=== PATIENT | male | born 1990 | race Caucasian/White ===

== ENCOUNTER 2016-07-10 13:50 | Emergency (ER) | payer MEDICAID ==
[2012-11-06 20:40] VITALS: BMI 25.4
== END 2016-07-10 17:02 | disposition home or self-care (01) ==
LOC: D.ER 13:50
DX: S05.01XA Injury of conjunctiva and corneal abrasion without foreign body, right eye, initial encounter (principal); X58.XXXA Exposure to other specified factors, initial encounter; Y93.89 Activity, other specified; Y92.89 Other specified places as the place of occurrence of the external cause; K21.9 Gastro-esophageal reflux disease without esophagitis; F17.200 Nicotine dependence, unspecified, uncomplicated

== ENCOUNTER 2016-11-26 15:43 | Emergency (ER) | payer MEDICAID ==
[2012-11-06 20:40] VITALS: BMI 25.4
== END 2016-11-26 19:07 | disposition home or self-care (01) ==
LOC: D.ER 15:43
DX: S05.02XA Injury of conjunctiva and corneal abrasion without foreign body, left eye, initial encounter (principal); X58.XXXA Exposure to other specified factors, initial encounter; Y93.89 Activity, other specified; Y92.89 Other specified places as the place of occurrence of the external cause; R68.84 Jaw pain; V89.2XXA Person injured in unspecified motor-vehicle accident, traffic, initial encounter

== ENCOUNTER 2017-11-25 23:33 | Emergency (ER) | payer MEDICAID ==
[~2017-11-25] VITALS: Ht 180.3 cm; Wt 83.6 kg
[2017-11-25 23:43] VITALS: Ht 180.3 cm; Wt 83.6 kg
[2017-11-25] MEDS ORDERED: AMITRIPTYLINE H50 MG PO (23:44)
[2017-11-25] MEDS ORDERED: NEURONTIN 300300 MG PO (23:44)
[2017-11-26] MEDS ORDERED: COLCRYS0.6 MG PO (00:12)
[2017-11-26] MEDS ORDERED: NEURONTIN 300300 MG PO (00:12)
[2017-11-26] MEDS ORDERED: AMITRIPTYLINE H50 MG PO (00:12)
[2017-11-26 00:18] VITALS: BP 136/94
[2017-11-27] MEDS ORDERED: TYLENOL #4 W/CO1 TAB PO (02:04)
[2017-11-27] MEDS ORDERED: PREDNISONE20 MG PO (02:04)
== END 2017-11-26 00:19 | disposition home or self-care (01) ==
LOC: D.ER 23:33
DX: I65.8 Occlusion and stenosis of other precerebral arteries (principal); F17.200 Nicotine dependence, unspecified, uncomplicated

== ENCOUNTER 2017-11-26 23:59 | Emergency (ER) | payer MEDICAID ==
[~2017-11-26] VITALS: Ht 180.3 cm; Wt 82.7 kg
[~2017-11-26 23:59] MED LIST: AMITRIPTYLINE H50 MG PO; COLCRYS0.6 MG PO; NEURONTIN 300300 MG PO
[2017-11-27 00:15] VITALS: Ht 180.3 cm; Wt 82.7 kg
[2017-11-27] MEDS ORDERED: PREDNISONE20 MG PO (02:04)
[2017-11-27] MEDS ORDERED: TYLENOL #4 W/CO1 TAB PO (02:04)
[2017-11-27 02:40] VITALS: BP 124/88
== END 2017-11-27 02:39 | disposition home or self-care (01) ==
LOC: D.ER 23:59
DX: M35.2 Behcet's disease (principal); F17.200 Nicotine dependence, unspecified, uncomplicated

== ENCOUNTER 2018-02-02 20:21 | Emergency (ER) | payer MEDICAID ==
[~2018-02-02] VITALS: Ht 180.3 cm; Wt 72.7 kg
[~2018-02-02 20:21] MED LIST changes: +PREDNISONE20 MG PO; +TYLENOL #4 W/CO1 TAB PO
[2018-02-02 20:31] VITALS: Ht 180.3 cm; Wt 72.7 kg
[2018-02-02] MEDS ORDERED: HYDROCODONE-APA1 TAB PO (22:58)
[2018-02-02 23:08] VITALS: BP 122/81
== END 2018-02-02 23:08 | disposition home or self-care (01) ==
LOC: D.ER 20:21
DX: M35.2 Behcet's disease (principal); K13.79 Other lesions of oral mucosa; N50.89 Other specified disorders of the male genital organs; M25.562 Pain in left knee; M25.561 Pain in right knee

== ENCOUNTER 2018-02-19 15:47 | Emergency (ER) | payer MEDICAID ==
[~2018-02-19] VITALS: Ht 180.3 cm; Wt 69.1 kg
[~2018-02-19 15:47] MED LIST changes: +HYDROCODONE-APA1 TAB PO
[2018-02-19 15:51] VITALS: Ht 180.3 cm; Wt 69.1 kg
[2018-02-19] MEDS ORDERED: COLCRYS0.6 MG PO (19:33)
[2018-02-19] MEDS ORDERED: KENALOG 0.1% OI80 GM TOPICAL (19:33)
[2018-02-19] MEDS ORDERED: NORCO 7.5/325 T1 TA1 PO (19:36)
[2018-02-19 19:48] VITALS: BP 132/89
== END 2018-02-19 19:50 | disposition home or self-care (01) ==
LOC: D.ER 15:47
DX: K12.0 Recurrent oral aphthae (principal); M25.50 Pain in unspecified joint; M35.2 Behcet's disease; F17.200 Nicotine dependence, unspecified, uncomplicated

== ENCOUNTER 2018-02-20 10:49 | Emergency (ER) | payer MEDICAID ==
[~2018-02-20] VITALS: Ht 180.3 cm; Wt 69.1 kg
[~2018-02-20 10:49] MED LIST changes: +KENALOG 0.1% OI80 GM TOPICAL; +NORCO 7.5/325 T1 TA1 PO
[2018-02-20 11:09] VITALS: Ht 180.3 cm; Wt 69.1 kg
[2018-02-20 12:31] LABS: BASOPHILS 0.1 % (0-2); EOSINOPHILS 0.2 % (0-7); HEMOGLOBIN 14.1 g/dL (13.5-17.5); IMMATURE GRANULOCYTES 0.2 % (0-5); LYMPHOCYTES 7.4 % (15-50); MCH 30.7 pg (26.0-34.0); MCHC 34.4 g/dL (31.0-37.0); MCV 89.1 fL (80.0-100.0); MEAN PLATELET VOLUME 11.4 fL (7.4-10.4); MONOCYTES 5.9 % (2-11); NEUTROPHILS 86.2 % (40-80); PLATELET COUNT 211 10x3/uL (130-400); RDW 13.9 % (11.5-14.5); WBC 18.9 10x3/uL (4.8-10.8)
[2018-02-20 12:46] LABS: ALBUMIN 3.9 g/dL (3.4-5.0); ALKALINE PHOSPHATASE 77 U/L (46-116); ALT (SGPT) 29 U/L (10-68); CALC OSMOLALITY 271 mosm/kg (275-300); CALCIUM 9.1 mg/dL (8.5-10.1); CARBON DIOXIDE 29.9 mmol/L (21.0-32.0); CHLORIDE - SERUM 99 mmol/L (98-107); CREATININE - SERUM 0.8 mg/dL (0.6-1.3); GLUCOSE 114 mg/dL (74-106); POTASSIUM - SERUM 3.8 mmol/L (3.5-5.1); PROTEIN - SERUM 7.6 g/dL (6.4-8.2); SODIUM 137 mmol/L (136-145); UREA NITROGEN 5 mg/dL (7-18); eGFR NON AFRICAN AMERICAN > 90 mL/min (90-120)
[2018-02-20 17:00] VITALS: BP 139/85
== END 2018-02-20 17:43 | disposition left against medical advice (07) ==
LOC: D.ER 10:49
PROVIDERS: Family Medicine
DX: K04.7 Periapical abscess without sinus (principal); F17.200 Nicotine dependence, unspecified, uncomplicated

== ENCOUNTER 2018-03-13 17:10 | Emergency (ER) | payer MEDICAID ==
[~2018-03-13] VITALS: Ht 180.3 cm; Wt 72.3 kg
[2018-03-13 17:25] VITALS: BP 126/97; Ht 180.3 cm; Wt 72.3 kg
[2018-03-13] MEDS ORDERED: CLEOCIN HCL300 MG PO (17:53)
[2018-03-13] MEDS ORDERED: EC-NAPROSYN500 MG PO (17:53)
== END 2018-03-13 19:19 | disposition home or self-care (01) ==
LOC: D.ER 17:10
DX: K02.9 Dental caries, unspecified (principal); K04.7 Periapical abscess without sinus; M35.2 Behcet's disease; F17.200 Nicotine dependence, unspecified, uncomplicated

== ENCOUNTER 2018-03-31 23:58 | Emergency (ER) | payer MEDICAID ==
[~2018-03-31] VITALS: Ht 180.3 cm; Wt 71.8 kg
[~2018-03-31 23:58] MED LIST changes: +CLEOCIN HCL300 MG PO; +EC-NAPROSYN500 MG PO
[2018-04-01 00:17] VITALS: Ht 180.3 cm; Wt 71.8 kg
[2018-04-01] MEDS ORDERED: NEURONTIN 300300 MG PO ×2 (00:20→00:43)
[2018-04-01] MEDS ORDERED: NORCO 10-325 TA1 TAB PO (00:20)
[2018-04-01] MEDS ORDERED: PREDNISONE20 MG PO (00:21)
[2018-04-01] MEDS ORDERED: EC-NAPROSYN500 MG PO (00:43)
[2018-04-01] MEDS ORDERED: PREDNISONE10 MG PO (00:43)
[2018-04-01 01:09] VITALS: BP 125/81
== END 2018-04-01 01:10 | disposition home or self-care (01) ==
LOC: D.ER 23:58
DX: M35.2 Behcet's disease (principal); Z76.0 Encounter for issue of repeat prescription; K13.79 Other lesions of oral mucosa; F17.200 Nicotine dependence, unspecified, uncomplicated

== ENCOUNTER 2018-06-30 14:50 | Emergency (ER) | payer MEDICAID ==
[~2018-06-30] VITALS: Ht 180.3 cm; Wt 72.3 kg
[~2018-06-30 14:50] MED LIST changes: +NORCO 10-325 TA1 TAB PO; +PREDNISONE10 MG PO
[2018-06-30 15:18] VITALS: BP 126/73; Ht 180.3 cm; Wt 72.3 kg
[2018-06-30] MEDS ORDERED: NEURONTIN600 MG PO (16:20)
[2018-06-30] MEDS ORDERED: AUGMENTIN 875-11 TAB PO (16:20)
== END 2018-06-30 16:42 | disposition home or self-care (01) ==
LOC: D.ER 14:50
DX: K08.89 Other specified disorders of teeth and supporting structures (principal); K08.109 Complete loss of teeth, unspecified cause, unspecified class; M35.2 Behcet's disease; F17.200 Nicotine dependence, unspecified, uncomplicated

== ENCOUNTER 2018-10-17 13:54 | Emergency (ER) | payer MEDICAID ==
[~2018-10-17] VITALS: Ht 180.3 cm; Wt 85.9 kg
[~2018-10-17 13:54] MED LIST changes: +AUGMENTIN 875-11 TAB PO; +NEURONTIN600 MG PO
[2018-10-17 14:10] VITALS: Ht 180.3 cm; Wt 85.9 kg
[2018-10-17] MEDS ORDERED: VOLTAREN75 MG PO (14:52)
[2018-10-17] MEDS ORDERED: STERAPRED DS 1210 MG PO (14:52)
[2018-10-17] MEDS ORDERED: OMEPRAZOLE20 M1 PO (14:52)
[2018-10-17 15:07] VITALS: BP 128/72
== END 2018-10-17 15:08 | disposition home or self-care (01) ==
LOC: D.ER 13:54
DX: R52 Pain, unspecified (principal); M35.2 Behcet's disease

== ENCOUNTER 2018-10-25 22:18 | Emergency (ER) | payer MEDICAID ==
[~2018-10-25] VITALS: Ht 180.3 cm; Wt 85.7 kg
[~2018-10-25 22:18] MED LIST changes: +OMEPRAZOLE20 M1 PO; +STERAPRED DS 1210 MG PO; +VOLTAREN75 MG PO
[2018-10-25 22:32] VITALS: Ht 180.3 cm; Wt 85.7 kg
[2018-10-25] MEDS ORDERED: HYDROCODON-ACE1 EA10 PO (22:34)
[2018-10-25] MEDS ORDERED: PREDNISONE10 MG PO (22:34)
[2018-10-26] MEDS ORDERED: NEURONTIN600 MG PO (00:52)
[2018-10-26] MEDS ORDERED: STERAPRED DS 1010 MG PO (00:52)
[2018-10-26 01:11] VITALS: BP 120/78
== END 2018-10-26 01:12 | disposition home or self-care (01) ==
LOC: D.ER 22:18
DX: M35.2 Behcet's disease (principal)

== ENCOUNTER 2018-11-09 22:22 | Emergency (ER) | payer MEDICAID ==
[~2018-11-09 22:22] MED LIST changes: +HYDROCODON-ACE1 EA10 PO; +STERAPRED DS 1010 MG PO
[2018-11-09 22:46] VITALS: BMI 22.2
[2018-11-09] MEDS ORDERED: ELAVIL25 MG PO (22:47)
[2018-11-10] MEDS ORDERED: PHENERGAN25 M1 PO (00:24)
[2018-11-10] MEDS ORDERED: NAPROSYN500 MG PO (00:24)
[2018-11-10 02:00] VITALS: BP 132/78
== END 2018-11-10 02:00 | disposition home or self-care (01) ==
LOC: D.ER 22:22
DX: R51 Headache (principal)